=== PATIENT | male | born 1960 | race Caucasian/White ===

== ENCOUNTER → 2020-05-26 | Outpatient (CLI) | payer OTHER ==
[~2020-05-26] MED LIST: ALLOPURINOL 10100 M3 PO; METOPROLOL TAR100 MG PO; PROTONIX40 M2 PO; SYMBICORT80 MCG/4.1 INH; TOPROL XL100 MG PO; VITAMIN C500 M1 PO; ZINC50 M1 PO
== END ==
LOC: CAT 09:25
PROVIDERS: ATTEND Specialist
DX: M51.17 Intervertebral disc disorders with radiculopathy, lumbosacral region (principal); M43.16 Spondylolisthesis, lumbar region; M47.815 Spondylosis without myelopathy or radiculopathy, thoracolumbar region; M48.07 Spinal stenosis, lumbosacral region; M25.78 Osteophyte, vertebrae